=== PATIENT | female | born 1975 | race American Indian/Alaskan Native ===

== ENCOUNTER 2018-10-25 14:15 | Emergency (ER) | payer OTHER ==
--- NOTE | 2018-10-25 14:29 | Emergency Department Report ---
Chief Complaint: High BP Stated Complaint: HBP Time Seen by Provider: 10/25/18 14:27 - HPI History of Present Illness: incidental finding of inc bp no cp no sob pmh htn dm rx nifedipine hctz metformin glipizide [facility] 10-14 - Exam Vital Signs: Vital Signs 10/25/18 14:19 Temperature 98 F Pulse Rate 123 H Respiratory 18 Rate Blood Pressure 219/138 [Right] O2 Sat by Pulse 99 Oximetry MSE screening note: Focused history and physical exam performed. Due to findings the following was ordered: ED Disposition for MSE Condition: Stable
[2018-10-25] MEDS ORDERED: CATAPRES PO ONE (14:59)
[2018-10-25] MEDS ORDERED: LOPRESSOR PO ONE (16:07)
--- NOTE | 2018-10-25 17:39 | Emergency Department Report ---
ED General Adult HPI - General Chief complaint: High BP Stated complaint: HBP Time Seen by Provider: 10/25/18 14:27 Source: patient Mode of arrival: Ambulatory Limitations: No Limitations - History of Present Illness Initial comments: Patient is a 43-year-old female who is presenting with elevated blood pressure. Patient states that she has a history of hypertension and was at work physical exam her blood pressure was elevated. Patient states she did not take her blood pressure medicines yesterday wasn't bleeding she took them today. Patient denies any chest pain shortness of breath or focal neurological deficits or decreased urination. Patient states that she has not been told her blood pressure was elevated she would have assumed everything was fine. Severity scale (0 -10): 0 - Related Data Home Medications Medication Instructions Recorded Confirmed Last Taken Multivitamin [Multiple Vitamins] 1 each PO DAILY 03/01/18 03/01/18 02/28/18 Previous Rx's Medication Instructions Recorded Last Taken Type Ibuprofen [Motrin 800 MG tab] 800 mg PO Q8H PRN tablet 03/03/18 Unknown Rx Metformin HCl [Glucophage] 1,000 mg PO BID #60 tablet 03/03/18 Unknown Rx NIFEdipine XL [Procardia Xl] 90 mg PO QDAY #30 tablet 03/03/18 Unknown Rx glipiZIDE [Glucotrol] 5 mg PO BID #60 tablet 03/03/18 Unknown Rx hydrALAZINE [Apresoline INJ] 50 mg PO TID PRN #90 vial 03/03/18 Unknown Rx hydroCHLOROthiazide [HCTZ] 25 mg PO QDAY #30 capsule 03/03/18 Unknown Rx Allergies Allergy/AdvReac Type Severity Reaction Status Date / Time No Known Allergies Allergy Verified 10/11/14 03:01 ED Review of Systems ROS: Stated complaint: HBP Other details as noted in HPI Comment: All other systems reviewed and negative ED Past Medical Hx - Past Medical History Hx Hypertension: Yes Hx Congestive Heart Failure: No Hx Diabetes: Yes Hx Headaches / Migraines: Yes Hx Asthma: No Hx COPD: No Hx HIV: No - Surgical History Hx Cholecystectomy: Yes - Social History Smoking Status: Never Smoker Substance Use Type: None - Medications Home Medications: Home Medications Medication Instructions Recorded Confirmed Last Taken Type Multivitamin [Multiple Vitamins] 1 each PO DAILY 03/01/18 03/01/18 02/28/18 History Ibuprofen [Motrin 800 MG tab] 800 mg PO Q8H PRN tablet 03/03/18 Unknown Rx Metformin HCl [Glucophage] 1,000 mg PO BID #60 tablet 03/03/18 Unknown Rx NIFEdipine XL [Procardia Xl] 90 mg PO QDAY #30 tablet 03/03/18 Unknown Rx glipiZIDE [Glucotrol] 5 mg PO BID #60 tablet 03/03/18 Unknown Rx hydrALAZINE [Apresoline INJ] 50 mg PO TID PRN #90 vial 03/03/18 Unknown Rx hydroCHLOROthiazide [HCTZ] 25 mg PO QDAY #30 capsule 03/03/18 Unknown Rx ED Physical Exam - General Limitations: No Limitations General appearance: alert, in no apparent distress - Head Head exam: Present: atraumatic, normocephalic - Eye Eye exam: Present: normal appearance - ENT ENT exam: Present: mucous membranes moist - Neck Neck exam: Present: normal inspection - Respiratory Respiratory exam: Present: normal lung sounds bilaterally. Absent: respiratory distress, wheezes, rales, rhonchi - Cardiovascular Cardiovascular Exam: Present: regular rate, normal rhythm. Absent: systolic murmur, diastolic murmur, rubs, gallop - GI/Abdominal GI/Abdominal exam: Present: soft, normal bowel sounds. Absent: distended, tenderness, guarding, rebound - Extremities Exam Extremities exam: Present: normal inspection - Back Exam Back exam: Present: normal inspection - Neurological Exam Neurological exam: Present: alert, oriented X3 - Psychiatric Psychiatric exam: Present: normal affect, normal mood - Skin Skin exam: Present: warm, dry, intact, normal color. Absent: rash ED Course Vital Signs 10/25/18 10/25/18 10/25/18 14:19 14:30 15:32 Temperature 98 F Pulse Rate 123 H 114 H Respiratory 18 Rate Blood Pressure 219/136 Blood Pressure 219/138 [Right] O2 Sat by Pulse 99 Oximetry 10/25/18 10/25/18 10/25/18 16:07 16:15 17:23 Temperature Pulse Rate 116 H 116 H Respiratory Rate Blood Pressure 208/127 Blood Pressure 208/127 182/101 [Right] O2 Sat by Pulse Oximetry ED Medical Decision Making - Medical Decision Making Patient's blood pressure was 219/138 on arrival. Patient was given 0.2 Catapres which did not decrease the pressure significantly. Patient 50 of metoprolol as well and blood pressure is now under 200 as far as her systolic. Patient to be discharged home with follow-up with primary care physicians for potential medication adjustment. Also had a long conversation about a low-sodium diet with the patient is not adherent to. Critical care attestation.: If time is entered above; I have spent that time in minutes in the direct care of this critically ill patient, excluding procedure time. ED Disposition Clinical Impression: Accelerated hypertension Disposition: DC-01 TO HOME OR SELFCARE Is pt being admited?: No Does the pt Need Aspirin: No Condition: Stable Instructions: Hypertension (ED) Referrals: ELOISE CRESPO MD [Primary Care Provider] - 3-5 Days Time of Disposition: 17:38
[2018-10-25 17:52] VITALS: BP 171/105
== END 2018-10-25 17:52 | disposition home or self-care (01) ==
LOC: ED 14:15
DX: I10 Essential (primary) hypertension (principal); E11.9 Type 2 diabetes mellitus without complications; G43.909 Migraine, unspecified, not intractable, without status migrainosus
CPT/HCPCS: 82962; 93005; 93010